=== PATIENT | female | born 1970 | race Caucasian/White ===

== ENCOUNTER 2018-02-14 10:30 | Emergency (ER) | payer MEDICARE, MEDICAID ==
[~2018-02-14] VITALS: Ht 162.6 cm; Wt 79.8 kg
[2018-02-14 15:04] VITALS: BP 131/75
== END 2018-02-14 15:29 | disposition home or self-care (01) ==
LOC: ER 10:36
DX: M79.605 Pain in left leg (principal); Z86.718 Personal history of other venous thrombosis and embolism
CPT/HCPCS: 93971